=== PATIENT | male | born 1960 | race Caucasian/White ===

== ENCOUNTER 2019-09-11 09:53 | Outpatient (CLI) | payer MEDICARE, SELFPAY ==
--- NOTE | ~2019-09-11 | XR_ITS ---
EXAMINATION: XR knee LT 2V DATE: 09/11/2019 10:23 INDICATION: Left knee pain. TECHNIQUE: 2 views of left knee were obtained. COMPARISON: Left knee radiographs 04/23/2004 FINDINGS: Bone alignment is normal. No fracture. There is mild tricompartmental osteoarthritis. There is a small knee joint effusion. IMPRESSION: 1. Mild left knee osteoarthritis. 2. Small left knee joint effusion. Reviewed, dictated and finalized at location A. ESSOR OF GENETICS
--- NOTE | ~2019-09-11 | XR_ITS ---
EXAMINATION: XR knee RT 2V DATE: 09/11/2019 10:23 INDICATION: Right knee pain. TECHNIQUE: 2 views of right knee were obtained. COMPARISON: Right knee radiographs 04/23/2004 FINDINGS: Bone alignment is normal. No fracture. There is mild tricompartmental osteoarthritis. No kn ee joint effusion. There is anterior knee soft tissue swelling. IMPRESSION: 1. Mild right knee osteoarthritis. Reviewed, dictated and finalized at location A. TENANCE CUSTODIAN
== END 2019-09-11 09:54 | disposition home or self-care (01) ==
LOC: ANHIMG 10:01
PROVIDERS: PCP Internal Medicine Infectious Disease
DX: M25.569 Pain in unspecified knee (principal); M25.462 Effusion, left knee; M17.0 Bilateral primary osteoarthritis of knee
CPT/HCPCS: 73560

== ENCOUNTER 2020-07-16 14:30 | Outpatient (CLI) | payer MEDICARE, SELFPAY ==
--- NOTE | ~2020-07-16 | XR_ITS ---
EXAMINATION: XR lumbar spine 2-3V DATE: 07/16/2020 15:09 INDICATION: Lumbar radiculopathy. TECHNIQUE: 3 views of lumbar spine were obtained. COMPARISON: Lumbar spine radiograph 04/25/2018, lumbar spine MRI 07/27/2019 FINDINGS: There is 5 degrees levocurvature of lumbar spine. Vertebral body heights are normal. There is mildly decreased disc height at L3-L4 and L4-L5. There are endplate osteophytes at most levels. Th ere is multilevel mild to moderate facet joint osteoarthritis. There is severe right facet joint oste oarthritis at L3-L4. IMPRESSION: 1. Mild lumbar spondylosis. Reviewed, dictated and finalized at location A. WELDER IMPRESSION: 1. Mild lumbar spondylosis.
--- NOTE | ~2020-07-16 | XR_ITS ---
EXAMINATION: XR hand RT min 3V, XR hand LT min 3V DATE: 07/16/2020 15:09 INDICATION: Bilateral hand pain TECHNIQUE: 1. Posteroanterior, oblique and lateral views of the left hand were obtained. 2. Posteroanterior, oblique and lateral views of the right hand were obtained. COMPARISON: None. FINDINGS: Normal alignment at both hands. No fracture. Severe nonuniform joint space narrowing at the right thi rd metacarpophalangeal joint with lucencies at the base of the proximal phalanx and to a greater degr ee at the head of the third metacarpal. There are also small marginal osteophytes at the head of the third metacarpal. Moderate to severe nonuniform joint space narrowing at the left third metacarpophal angeal joint with small marginal osteophytes and without evident lucencies. Additional mild nonunifor m joint space narrowing at the bilateral first carpometacarpal, multiple interphalangeal and a few th e remaining metacarpophalangeal joints of both hands. There are additional lucencies at the distal le ft ulna, the distal pole of the left scaphoid and at the bilateral lunate bones. Soft tissue swelling about the bilateral third metacarpophalangeal joints. IMPRESSION: 1. Polyarticular osteoarthritis atypically severe at the bilateral first metacarpophalangeal joints s uggesting secondary osteoarthritis at this location. 2. Scattered lucencies as detailed above including at the right third metacarpophalangeal joint which could represent degenerative subchondral cysts or erosions in the setting of an inflammatory arthrit is which given the distribution and appearance would favor crystalline arthropathy such as calcium py rophosphate deposition (CPPD) disease or gout over rheumatoid arthritis. Reviewed, dictated and finalized at location A. HOUSE COUNSEL IMPRESSION: 1. Polyarticular osteoarthritis atypically severe at the bilateral first metaca rpophalangeal joints suggesting secondary osteoarthritis at this location. 2. Scattered lucencies as detailed above including at the right third metacarpo phalangeal joint which could represent degenerative subchondral cysts or erosio ns in the setting of an inflammatory arthritis which given the distribution and appearance would favor crystalline arthropathy such as calcium pyrophosphate d eposition (CPPD) disease or gout over rheumatoid arthritis.
== END 2020-07-16 14:31 | disposition home or self-care (01) ==
PROVIDERS: PCP Internal Medicine Infectious Disease
DX: M79.643 Pain in unspecified hand (principal); M47.26 Other spondylosis with radiculopathy, lumbar region; M96.1 Postlaminectomy syndrome, not elsewhere classified; G89.4 Chronic pain syndrome; Z13.89 Encounter for screening for other disorder; M25.569 Pain in unspecified knee; M17.9 Osteoarthritis of knee, unspecified
CPT/HCPCS: 72100; 73130

== ENCOUNTER 2021-10-13 12:58 | Outpatient (CLI) | payer MEDICARE, SELFPAY ==
--- NOTE | ~2021-10-13 | XR_ITS ---
XR hip LT min 2V, XR hip RT min 2V 10/13/2021 13:38 (accession [id number]), 10/13/2021 13:39 (accession [id number]) Indication: Hip pain. Procedure: 2 views each hip Comparison: No prior studies for comparison. Findings: There is anatomic alignment. No significant joint space narrowing. No fracture or traumatic malalignment. Pelvis is unremarkable. Sacral foramen are symmetric. Impression: 1: No significant bone or joint abnormality. Reviewed, dictated and finalized at location A. MACHINE OPERATOR Impression: 1: No significant bone or joint abnormality. Impression: 1: No significant bone or joint abnormality.
--- NOTE | ~2021-10-13 | XR_ITS ---
XR hand LT min 3V DATE: 10/13/2021 13:39 INDICATION: Joint pain TECHNIQUE: 3 views COMPARISON: 07/16/2020 left hand FINDINGS: There is prominent osteophytic change of the left second metacarpophalangeal joint and lavon re osteoarthritic change and moderate lateral subluxation at the third metacarpophalangeal joint. No fracture or dislocation, periosteal reaction or bone destruction. No erosive change or chondrocalc inosis. IMPRESSION: Osteoarthritis involving second and particularly third metacarpophalangeal joints Reviewed, dictated and finalized at location A. THCARE OR MEDICAL IMPRESSION: Osteoarthritis involving second and particularly third metacarpopha langeal joints
--- NOTE | ~2021-10-13 | XR_ITS ---
XR hand RT min 3V DATE: 10/13/2021 13:39 INDICATION: Joint pain TECHNIQUE: 3 views COMPARISON: 07/16/2020 right hand FINDINGS: There is severe joint space narrowing and prominent cystic change at the third metacarpopha langeal joint, having progressed significantly since 07/16/2020. There is prominent spurring. No fracture, dislocation, periosteal reaction or bone destruction is noted otherwise. 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 EF CAPTAIN IMPRESSION: Severe erosive osteoarthritis at the third metacarpophalangeal join t, significantly advanced since 07/16/2020
== END 2021-10-13 12:59 | disposition home or self-care (01) ==
PROVIDERS: PCP Internal Medicine Infectious Disease; Visit Provider Pain Medicine Interventional Pain Medicine
DX: M96.1 Postlaminectomy syndrome, not elsewhere classified (principal); M79.672 Pain in left foot; M79.671 Pain in right foot
CPT/HCPCS: 73130; 73502

== ENCOUNTER 2021-11-27 11:27 | Outpatient (CLI) | payer MEDICARE, SELFPAY ==
--- NOTE | ~2021-11-27 | XR_ITS ---
EXAMINATION: XR knee LT min 4V DATE: 11/27/2021 12:18 INDICATION: Osteoarthritis of the knee TECHNIQUE: Four views of the left knee were obtained. COMPARISON: None. FINDINGS: Alignment is normal. No fracture or osteochondral lesion. There is mild tricompartmental os teoarthritis characterized by tiny marginal osteophytes. No joint effusion/synovitis. Soft tissues a re unremarkable. IMPRESSION: 1. Unchanged mild osteoarthritis without acute osseous abnormality. Reviewed, dictated and finalized at location A.
--- NOTE | ~2021-11-27 | XR_ITS ---
EXAMINATION: XR knee RT min 4V DATE: 11/27/2021 12:18 INDICATION: Osteoarthritis of the knee TECHNIQUE: Four views of the right knee were obtained. COMPARISON: 09/11/2019 FINDINGS: Alignment is normal. No fracture or osteochondral lesion. There is mild tricompartmental os teoarthritis characterized by tiny marginal osteophytes. No joint effusion/synovitis. Soft tissues a re unremarkable. IMPRESSION: 1. Unchanged mild osteoarthritis without acute osseous abnormality. Reviewed, dictated and finalized at location A.
--- NOTE | ~2021-11-27 | XR_ITS ---
EXAMINATION: XR lumbar spine 2-3V DATE: 11/27/2021 12:19 INDICATION: Low back pain TECHNIQUE: Anteroposterior and lateral views of the lumbar spine, and cone-down lateral view of the l umbosacral junction were obtained. COMPARISON: 07/16/2020 FINDINGS: Lumbar levocurvature is noted. There is no fracture. Vertebral body alignment is normal. Th ere is unchanged mild loss of intervertebral disc space height at L3-4 and L4-5. The vertebral body h eights are maintained. Small degenerative osteophytes project from the anterior endplates of multiple vertebral bodies. There is mild to moderate facet osteoarthritis. The bowel gas pattern is normal. C alcified atherosclerosis is noted. IMPRESSION: 1. Mild lumbar spondylosis without acute findings or significant interval change. Reviewed, dictated and finalized at location A. IMPRESSION: 1. Mild lumbar spondylosis without acute findings or significant interval charles lacy
--- NOTE | ~2021-11-27 | XR_ITS ---
EXAMINATION:XR cervical spine 4-5V DATE: 11/27/2021 12:19 INDICATION: Neck pain TECHNIQUE: AP, lateral, lateral swimmers and odontoid views of the cervical spine are provided. COMPARISON: 04/25/2018 FINDINGS: Alignment is normal. The odontoid is intact. No fracture is identified. Interbody devices a re present at C5-6 and C6-7. There is loss of intervertebral disc space height at these levels. There is also mild loss of intervertebral disc space height throughout the remainder of the spine. There a re 2 mm of stable anterolisthesis of C4 on C5. The vertebral body heights are maintained. There is se ortiz multilevel facet and uncovertebral joint osteoarthritis. Prevertebral soft tissues are normal. IMPRESSION: 1. Mild cervical spondylosis and postsurgical change without acute findings or significant interval taylor garcia. Reviewed, dictated and finalized at location A. IMPRESSION: 1. Mild cervical spondylosis and postsurgical change without acute findings or significant interval change.
== END 2021-11-27 11:28 | disposition home or self-care (01) ==
PROVIDERS: PCP Internal Medicine Infectious Disease; Visit Provider Pain Medicine Interventional Pain Medicine
DX: M47.27 Other spondylosis with radiculopathy, lumbosacral region (principal); M47.22 Other spondylosis with radiculopathy, cervical region; M17.0 Bilateral primary osteoarthritis of knee
CPT/HCPCS: 72050; 72100; 73564

== ENCOUNTER 2022-02-10 10:29 | Emergency (ER) | payer MEDICARE, SELFPAY ==
[2022-02-10 10:34] VITALS: BP 142/69; PULSE 91; RESP 18; TEMP 36.2; O2SAT 95
--- NOTE | 2022-02-10 11:15 | ED.SKABFB ---
HPI - Skin/Abscess/Foreign Bdy General Chief complaint: Skin/Abscess/Foreign Body <GERBER Jorge Last Filed: 02/10/22 18:08> Stated complaint: rash to b/l feet <Cyndi Chung PA-C - Last Filed: 02/10/22 18:08> Time Seen by Provider: 02/10/22 10:56 <Cyndi Chung PA-C - Last Filed: 02/10/22 18:08> History of Present Illness HPI narrative: Patient is a 61-year-old male here for evaluation of itchy feet for the past 3 days. Patient states that he was working on his yard and afterwards he noted a small area over his bilateral feet that was itchy and red. He has been scratching the areas of her symptoms, and the area of redness has increased and they have become somewhat painful. He has attempted lotion on his feet and has covered the area without relief. Patient states he has sensitive skin and he frequently gets rashes after working on his yard; denies new soaps, lotion or detergents, medications. Denies history of diabetes, tick bites, fevers, chills, chest pain, shortness of breath. <GERBER Jorge Last Filed: 02/10/22 18:08> Related Data Allergies/Adverse reactions: Allergies Allergy/AdvReac Type Severity Reaction Status Date / Time No Known Allergies Allergy Unknown Verified 01/13/18 09:11 <GERBER Jorge Last Filed: 02/10/22 18:08> Review of Systems Review of Systems: Gen.: Denies fevers or chills Eyes: Denies eye pain or visual change ENT: Denies congestion Respiratory: Denies shortness of breath or cough CV: Denies chest pain or palpitations GI: Denies abdominal pain nausea, emesis or diarrhea denies burning, urgency, frequency or hematuria Musculoskeletal: Denies back pain or muscle pain Neuro: Denies numbness, tingling, weakness or focal weakness Skin: Reports itchy rash Except as documented, all other systems reviewed and negative <GERBER Jorge Last Filed: 02/10/22 18:08> [facility] Family History Family History: Family History (Updated 03/12/16 @ 23:19 by DOCTOR UNKNOWN) Father Cerebrovascular accident, Onset Age: 68 Mother Family history of diabetes mellitus in first degree relative, Onset Age: 60 Sibling No family history of malignant neoplasm No family history of chronic obstructive pulmonary disease <Cyndi Chung PA-C - Last Filed: 02/10/22 18:08> Social History Social History: Social History Smoking status: Heavy tobacco smoker Alcohol intake: current <Cyndi Chung PA-C - Last Filed: 02/10/22 18:08> Exam Narrative: APPEARANCE: No acute distress, nontoxic, resting in bed EYES: EOMI HEENT: Normocephalic, atraumatic, OMM RESPIRATORY: No respiratory distress Clear to auscultation bilaterally with no rhonchi wheezing or rales. CARDIOVASCULAR: Regular rate and rhythm without murmurs rubs or gallops. ABDOMINAL: Soft, nontender, nondistended, no rebound or guarding MUSCULOSKELETAL: 2+ DP and PT pulses bilaterally. Moves all extremities. No clubbing, cyanosis or edema. NEURO: Awake and alert. Following commands, speech normal, no focal deficits SKIN: Patient has an erythematous, maculopapular rash over the dorsal surface of his bilateral feet with overlying excoriation. He has 2 small macules over his left calf. His toenails are thick. PSYCHIATRIC: Normal affect/mood <Cyndi Chung PA-C - Last Filed: 02/10/22 18:08> Course PRODUCTION ASSOCIATE/PA Physician Supervision I saw and evaluated the patient myself and agree with the care plan. <Vijay Miner MD - Last Filed: 02/10/22 19:03> Vital Signs Vital signs: Vital Signs Temperature 36.2 C L 02/10/22 10:34 Pulse Rate 91 02/10/22 10:34 Respiratory Rate 18 02/10/22 10:34 Blood Pressure 142/69 H 02/10/22 10:34 Pulse Oximetry 95 02/10/22 10:34 Oxygen Delivery Room Air 02/10/22 10:34 Temperature 36.2 C L 02/10/22 10:34 Pulse Rate 91 02/10/22 10:34 Respiratory Rate 18
[2022-02-10] MEDS: diphenhydrAMINE HCl CAP 25 MG CAPSULE PO (11:35)
== END 2022-02-10 12:21 | disposition home or self-care (01) ==
PROVIDERS: Emergency Provider Emergency Medicine; PCP Internal Medicine Infectious Disease
DX: L23.9 Allergic contact dermatitis, unspecified cause (principal); F17.200 Nicotine dependence, unspecified, uncomplicated
CPT/HCPCS: 99283; A9270

== ENCOUNTER 2022-03-15 14:23 | Emergency (ER) | payer MEDICARE, SELFPAY ==
[2022-03-15 14:38] VITALS: BP 146/79; PULSE 102; RESP 20; TEMP 36.6; O2SAT 98
== END 2022-03-15 15:15 | disposition left against medical advice (07) ==
PROVIDERS: PCP Internal Medicine Infectious Disease
DX: R21 Rash and other nonspecific skin eruption (principal)
CPT/HCPCS: 99199